=== PATIENT | female | born 1970 | race Two or more races ===

== ENCOUNTER → 2025-08-16 | Outpatient (CLI) | payer MEDICAID, SELFPAY ==
--- NOTE | 2025-08-16 | XR_ITS ---
Examination: Abdomen AP single view Technique: AP portable supine abdomen, single view Exam date and time: August 16, 2025, 1207 hours INDICATIONS: Microhematuria and laboratory examination this week pain with urination FINDINGS: No renal or ureteral calculi Moderate stool throughout the colon Multiple surgical clips upper right abdomen IMPRESSION: No renal or ureteral calculi
== END | disposition home or self-care (01) ==
PROVIDERS: PCP Nurse Practitioner Family; Referring Provider Surgery; Visit Provider Surgery
DX: R31.9 Hematuria, unspecified (principal)
CPT/HCPCS: 74018

== ENCOUNTER → 2025-09-19 | Outpatient (CLI) | payer MEDICAID, SELFPAY ==
--- NOTE | 2025-09-19 15:00 | XR_ITS ---
Examination: Retroperitoneal ultrasound, complete Technique: Multiple high resolution grayscale images of the retroperitoneum obtained, including kidneys and bladder. Exam date and time: September 19, 2025, 1509 hours INDICATIONS: Hematuria months FINDINGS: Right kidney 10.8 cm renal cortex 1.3 cm Left kidney 9.5 cm renal cortex 1.7 cm Mild renal scar formation, no renal calculi No bladder mass or bladder calculi, bladder prevoid volume 475 cc IMPRESSION: No renal calculi, no hydronephrosis
== END | disposition home or self-care (01) ==
LOC: CDIM 14:52
PROVIDERS: PCP Nurse Practitioner Family; Referring Provider Surgery; Visit Provider Surgery
DX: R31.9 Hematuria, unspecified (principal)
CPT/HCPCS: 76770